=== PATIENT | female | born 1975 | race Caucasian/White ===

== ENCOUNTER 2021-11-03 10:13 | Emergency (ER) | payer OTHER ==
[~2021-11-03 10:13] MED LIST: ATARAX25 MG PO
[2021-11-03 11:21] LABS: BASOPHIL 0.3 % (0-2); BILIRUBIN NEGATIVE (NEGATIVE); BLOOD TRACE-INTACT Ery/uL (NEGATIVE); CLARITY CLEAR (CLEAR); COLOR YELLOW (YELLOW); EOSINOPHIL 0.2 % (0-5); GLUCOSE (U) NORMAL (NORMAL); HCT 39.8 % (37.0-47.0); HGB 13.5 g/dl (12.5-16.0); LEUKOCYTES NEGATIVE Leu/uL (NEGATIVE); LYMPHOCYTE 14.6 % (15-48); MCH 31.9 pg (25.0-31.0); MCHC 33.9 g/dL (32.0-36.0); MCV 94.1 fL (78.0-100.0); MONOCYTE 7.8 % (0-12); MPV 9.3 fL (6.0-9.5); NEUTROPHIL 76.9 % (41-80); NITRITE NEGATIVE (NEGATIVE); NRBC 0; PLT 307 K/uL (150-400); PROTEIN NEGATIVE (NEGATIVE); RBC 4.23 M/uL (4.20-5.40); RDW 11.9 % (11.5-14.0); SPECIFIC GRAVITY >=1.030 (1.001-1.030); UROBILINOGEN 0.2 mg/dL (0.2-1.0); WBC 12.1 K/uL (4.0-10.5)
[2021-11-03 11:30] LABS: URINARY RBC RARE
[2021-11-03 11:32] LABS: BACTERIA 3+; SQUAMOUS EPITHELIAL CELLS 20-50
[2021-11-03 11:39] LABS: ALBUMIN 3.9 g/dL (3.4-5.0); BILIRUBIN - TOTAL 0.8 mg/dL (0.2-1.0); BUN/CREAT RATIO (CALC) 10.9 RATIO; CREATININE 1.01 mg/dL (0.51-0.95); TOTAL PROTEIN 7.9 g/dL (6.4-8.2)
[2021-11-03] MEDS ORDERED: FLOMAX 0.4 MG0.4 MG PO (15:11)
[2021-11-03] MEDS ORDERED: NORCO 5-325 TA1 EACH PO (15:11)
[2021-11-03] MEDS ORDERED: NAPROXEN500 MG PO (15:11)
[2021-11-03] MEDS ORDERED: ONDANSETRON ODT4 MG PO (15:11)
[2021-11-03] MEDS ORDERED: AUGMENTIN 500-1 EACH PO (15:17)
== END 2021-11-03 16:31 | disposition home or self-care (01) ==
LOC: FER 10:13
PROVIDERS: Emergency Medicine
DX: N13.2 Hydronephrosis with renal and ureteral calculous obstruction (principal); I10 Essential (primary) hypertension; Z79.899 Other long term (current) drug therapy
CPT/HCPCS: 36415; 80053; 81001; 82150; 83690; 85025; J0696; J1170; J1885; J2405; Q9967